=== PATIENT | male | born 1975 | race Caucasian/White ===

== ENCOUNTER → 2020-05-16 | Outpatient (CLI) | payer OTHER ==
--- NOTE | 2020-05-16 16:05 | RADIOLOGY REPORT (SQ) ---
EXAM DESCRIPTION: CHEST 2 VIEWS IMAGES COMPLETED DATE/TIME: 05/16/2020 3:44 pm REASON FOR STUDY: (G47.9)SLEEP DISORDER, UNSPECIFIED COMPARISON: None. EXAM PARAMETERS: NUMBER OF VIEWS: two views TECHNIQUE: Digital Frontal and Lateral radiographic views of the chest acquired. RADIATION DOSE: NA LIMITATIONS: none FINDINGS: LUNGS AND PLEURA: No opacities, masses or pneumothorax. No pleural effusion. MEDIASTINUM AND HILAR STRUCTURES: No masses or contour abnormalities. HEART AND VASCULAR STRUCTURES: Heart normal size. No evidence for failure. BONES: No acute findings. HARDWARE: None in the chest. OTHER: No other significant finding. IMPRESSION: NO ACUTE RADIOGRAPHIC FINDING IN THE CHEST. TECHNICAL DOCUMENTATION: JOB ID: [id number] 2010 [employer] All Rights Reserved Reading location - IP/workstation name: [email or web address]
== END ==
LOC: RAD 15:07
PROVIDERS: ATTEND Internal Medicine Pulmonary Disease
DX: G47.39 Other sleep apnea (principal)
CPT/HCPCS: 71046